=== PATIENT | male | born 1965 | race African-American/Black ===

== ENCOUNTER 2017-08-19 15:10 | Inpatient (IN) ==
[2017-08-19] MEDS ORDERED: ONDANSETRON 4 MG/2 ML VIAL IV PRN ×2 (15:32→18:36)
[2017-08-19 16:06] LABS: Basophils % 0.4 % (0.0-0.8); Eosinophils # 0.5 10*3/uL (0.0-0.87); Eosinophils % 5.5 % (0.00-10.9); Hematocrit 40.1 VOL% (42.0-52.0); Hemoglobin 13.1 GM/DL (14.0-18.0); Immature Granulocytes % 0.7 %; Immature Granulocytes Absolute 0.06 #; Lymphocytes # 3.3 10*3/uL (1.4-4.0); Lymphocytes % 36.2 % (21.2-54.2); Mean Corpuscular HGB Conc 32.7 GM/DL (32-36); Mean Corpuscular Hemoglobin 31 PG (27-34); Mean Corpuscular Volume 95.9 FL (87-102); Mean Platelet Volume 10.3 FL (9.6-12.0); Monocytes # 1.1 10*3/uL (0.11-0.8); Monocytes % 11.9 % (1.7-12.7); Neutrophils # 4.2 10*3/uL (1.4-7.4); Neutrophils % 45.3 % (38.7-73.9); Platelet Count 332 T/CUMM (130-400); Red Blood Count 4.18 MC/CUMM (3.8-5.5); Red Cell Distribution Width 12.2 % (9.3-17.3); White Blood Count 9.2 T/CUMM (4-12)
[2017-08-19 16:13] LABS: INR 0.9; PT Patient Result 9.8 SECS; Partial Thromboplastin Time 27.1 SECS (0-40)
[2017-08-19 16:21] LABS: Alanine Aminotransferase 31 U/L (16-61); Albumin 3.1 G/DL (3.4-5.0); Alkaline Phosphatase 77 U/L (45-117); Aspartate Amino Transferase 31 U/L (0-37); Bilirubin,Total < 0.39 MG/DL (0.2-1.0); Blood Urea Nitrogen 11 MG/DL (7-18); Calcium 8.8 MG/DL (8.5-10.1); Glucose 117 MG/DL (74-106); Osmolality,Calculated 280.3 MOS/KG (273-304); Potassium 3.5 MMOL/L (3.5-5.1); Sodium 141 MMOL/L (136-145); Total Protein 8.1 G/DL (6.4-8.3); Troponin I Only < 0.015 NG/ML (0.00-0.045)
[2017-08-19 17:09] LABS: Apearance,Urine CLEAR (Clear); Bilirubin,Urine Negative (Negative); Blood, Urine Negative (Negative); Glucose,Urine (UA) Negative (Negative); Ketones,Urine Negative (Negative); Mucus,Urine Moderate /LPF (Occasional); Nitrite,Urine Negative (Negative); Protein,Urine Negative; RBC,Urine 7 /HPF (0-4); Urine Color Yellow (Yellow); Urine Specific Gravity 1.027 (1.001-1.035); Urine Urobilinogen < 2.0 EU/DL (0.2-1.0); WBC,Urine 2 /HPF (0-6)
[2017-08-19 17:21] LABS: Barbiturates Screen,Urine Negative (Negative); Benzodiazepines Screen,Urine Negative (Negative); Cannabinoid Screen,Urine Negative (Negative); Opiate Screen,Urine Negative (Negative); Phencyclidine Screen,Urine Negative (Negative)
[2017-08-19] MEDS ORDERED: LABETALOL 20 MG/4 ML SYRINGE IV PRN (18:58)
[2017-08-19 20:20] LABS: Cholesterol 136 MG/DL (50-200); HDL Cholesterol 57 MG/DL (40-60); Risk Ratio 2.39; Triglycerides 61 MG/DL (2-150); Troponin I Only < 0.015 NG/ML (0.00-0.045); VLDL CHOLESTEROL 12.2 MG/DL
[2017-08-19] MEDS ORDERED: ENOXAPARIN 40 MG/0.4 ML SYRINGE ONE (21:48)
[2017-08-19] MEDS: SODIUM CHLORIDE 0.9% 1,000 ML IV SCH (21:59)
[2017-08-19] MEDS: ENOXAPARIN 40 MG/0.4 ML SYRINGE SUBCUT SCH (21:59)
[2017-08-19] MEDS ORDERED: INFLUENZA VIRUS VACCINE 0.5 ML SYRINGE IM ONE (23:26)
[2017-08-20] MEDS: ASPIRIN CHEW 81 MG TABLET PO SCH (08:39)
[2017-08-20] MEDS: PANTOPRAZOLE 40 MG TABLET PO SCH (08:39)
[2017-08-20] MEDS: amLODIPine 5 MG TABLET PO SCH (09:19)
[2017-08-20] MEDS: ALBUTEROL/IPRATROPIUM 3 ML NEB RESP TX SCH ×3 (13:39→19:30)
[2017-08-20] MEDS ORDERED: NICOTINE 7 MG/24 HR PATCH TRANSDERM PRN (16:45)
[2017-08-20] MEDS ORDERED: LISINOPRIL 5 MG TABLET PO SCH (21:00)
[2017-08-20] MEDS: ATORVASTATIN 10 MG TABLET PO SCH (21:35)
[2017-08-20] MEDS: ENOXAPARIN 40 MG/0.4 ML SYRINGE SUBCUT SCH (21:36)
[2017-08-20] MEDS: SODIUM CHLORIDE 0.9% 1,000 ML IV SCH (22:08)
[2017-08-21] MEDS: ALBUTEROL/IPRATROPIUM 3 ML NEB RESP TX SCH ×7 (01:29→23:00)
[2017-08-21 03:12] LABS: Basophils % 0.4 % (0.0-0.8); Eosinophils # 0.2 10*3/uL (0.0-0.87); Eosinophils % 3.3 % (0.00-10.9); Hematocrit 34.5 VOL% (42.0-52.0); Hemoglobin 11.7 GM/DL (14.0-18.0); Immature Granulocytes % 0.4 %; Immature Granulocytes Absolute 0.03 #; Lymphocytes # 2.2 10*3/uL (1.4-4.0); Lymphocytes % 30.3 % (21.2-54.2); Mean Corpuscular HGB Conc 33.9 GM/DL (32-36); Mean Corpuscular Hemoglobin 32 PG (27-34); Mean Corpuscular Volume 92.7 FL (87-102); Mean Platelet Volume 10.3 FL (9.6-12.0); Monocytes % 13.8 % (1.7-12.7); Neutrophils # 3.7 10*3/uL (1.4-7.4); Neutrophils % 51.8 % (38.7-73.9); Platelet Count 345 T/CUMM (130-400); Red Blood Count 3.72 MC/CUMM (3.8-5.5); White Blood Count 7.2 T/CUMM (4-12)
[2017-08-21 03:42] LABS: Albumin 2.6 G/DL (3.4-5.0); Bilirubin,Total 0.5 MG/DL (0.2-1.0); Calcium 8.3 MG/DL (8.5-10.1); Magnesium 2.3 MG/DL (1.8-2.4); Osmolality,Calculated 278.3 MOS/KG (273-304); Potassium 3.5 MMOL/L (3.5-5.1); Total Protein 6.3 G/DL (6.4-8.3)
[2017-08-21] MEDS: amLODIPine 5 MG TABLET PO SCH (09:14)
[2017-08-21] MEDS: MULTIVITAMIN (OCUVITE) TABLET PO SCH (09:14)
[2017-08-21] MEDS: ASPIRIN CHEW 81 MG TABLET PO SCH (09:15)
[2017-08-21] MEDS: PANTOPRAZOLE 40 MG TABLET PO SCH (09:15)
[2017-08-21] MEDS: THIAMINE 100 MG TABLET PO SCH (09:17)
[2017-08-21] MEDS: FOLIC ACID 1 MG TABLET PO SCH (09:17)
[2017-08-21] MEDS: LISINOPRIL 10 MG TABLET PO SCH ×2 (09:17→21:42)
[2017-08-21] MEDS: SODIUM CHLORIDE 0.9% 1,000 ML IV SCH ×2 (11:46→21:43)
[2017-08-21 16:05] LABS: Apearance,Urine CLOUDY (Clear); Bilirubin,Urine Negative (Negative); Blood, Urine Large mg/dL (Negative); Glucose,Urine (UA) Negative (Negative); Ketones,Urine Negative (Negative); Mucus,Urine Moderate /LPF (Occasional); Nitrite,Urine Negative (Negative); Protein,Urine 30 MG/DL; RBC,Urine 692 /HPF (0-4); Urine Color Yellow (Yellow); Urine Specific Gravity 1.016 (1.001-1.035); WBC,Urine 3 /HPF (0-6)
[2017-08-21] MEDS ORDERED: POLYVINYL ALCOHOL 1.4% OPH SOLN 15 ML BOTTLE BOTH EYES PRN (20:35)
[2017-08-21] MEDS: ENOXAPARIN 40 MG/0.4 ML SYRINGE SUBCUT SCH (21:42)
[2017-08-21] MEDS: ATORVASTATIN 10 MG TABLET PO SCH (21:43)
[2017-08-22] MEDS: ALBUTEROL/IPRATROPIUM 3 ML NEB RESP TX SCH ×4 (03:00→20:37)
[2017-08-22] MEDS: SODIUM CHLORIDE 0.9% 1,000 ML IV SCH ×2 (06:52→13:02)
[2017-08-22] MEDS: ASPIRIN CHEW 81 MG TABLET PO SCH (08:57)
[2017-08-22] MEDS: MULTIVITAMIN (OCUVITE) TABLET PO SCH (08:58)
[2017-08-22] MEDS: LISINOPRIL 10 MG TABLET PO SCH (08:58)
[2017-08-22] MEDS: amLODIPine 5 MG TABLET PO SCH (08:59)
[2017-08-22] MEDS: THIAMINE 100 MG TABLET PO SCH (08:59)
[2017-08-22] MEDS: PANTOPRAZOLE 40 MG TABLET PO SCH (08:59)
[2017-08-22] MEDS: FOLIC ACID 1 MG TABLET PO SCH (09:00)
[2017-08-22] MEDS ORDERED: MAGNESIUM HYDROXIDE SUSP 30 ML UDCUP PO ONE (10:39)
[2017-08-22] MEDS ORDERED: amLODIPine 5 MG TABLET PO ONE (10:42)
[2017-08-22] MEDS ORDERED: amLODIPine 10 MG TABLET PO SCH (10:43)
[2017-08-22] MEDS: methylPREDNISolone SOD SUC 125 MG/2 ML VIAL IV SCH (13:04)
[2017-08-22] MEDS: guaiFENesin/DM ER 600-30 MG TABLET PO SCH ×2 (13:08→20:36)
[2017-08-22] MEDS: LEVOFLOXACIN INJ 750 MG in PREMIX 1 EACH IV SCH (13:16)
[2017-08-22] MEDS ORDERED: DOCUSATE SODIUM 100 MG CAPSULE PO PRN (14:11)
[2017-08-22] MEDS ORDERED: LACTULOSE 20 GM/30 ML UDCUP PO PRN (14:11)
[2017-08-22] MEDS: LISINOPRIL 20 MG TABLET PO SCH (20:36)
[2017-08-22] MEDS: ENOXAPARIN 40 MG/0.4 ML SYRINGE SUBCUT SCH (20:36)
[2017-08-22] MEDS: ATORVASTATIN 10 MG TABLET PO SCH (20:36)
[2017-08-23] MEDS: SODIUM CHLORIDE 0.9% 1,000 ML IV SCH ×2 (00:09→10:44)
[2017-08-23] MEDS: methylPREDNISolone SOD SUC 125 MG/2 ML VIAL IV SCH ×2 (00:20→11:12)
[2017-08-23] MEDS: ALBUTEROL/IPRATROPIUM 3 ML NEB RESP TX SCH ×3 (00:28→13:45)
[2017-08-23 06:12] LABS: Basophils % 0.1 % (0.0-0.8); Hematocrit 34.7 VOL% (42.0-52.0); Hemoglobin 12.1 GM/DL (14.0-18.0); Immature Granulocytes % 0.8 %; Immature Granulocytes Absolute 0.06 #; Lymphocytes # 0.9 10*3/uL (1.4-4.0); Mean Corpuscular HGB Conc 34.9 GM/DL (32-36); Mean Corpuscular Hemoglobin 32 PG (27-34); Mean Corpuscular Volume 91.3 FL (87-102); Monocytes # 0.1 10*3/uL (0.11-0.8); Monocytes % 1.5 % (1.7-12.7); Neutrophils # 6.1 10*3/uL (1.4-7.4); Neutrophils % 85.6 % (38.7-73.9); Platelet Count 422 T/CUMM (130-400); Red Cell Distribution Width 11.9 % (9.3-17.3); White Blood Count 7.2 T/CUMM (4-12)
[2017-08-23 06:38] LABS: Albumin 2.7 G/DL (3.4-5.0); Bilirubin,Total 0.5 MG/DL (0.2-1.0); Calcium 8.6 MG/DL (8.5-10.1); Osmolality,Calculated 276.5 MOS/KG (273-304); Potassium 4.1 MMOL/L (3.5-5.1); Total Protein 6.9 G/DL (6.4-8.3)
[2017-08-23] MEDS: ASPIRIN CHEW 81 MG TABLET PO SCH (09:14)
[2017-08-23] MEDS: THIAMINE 100 MG TABLET PO SCH (09:15)
[2017-08-23] MEDS: ACETAMINOPHEN 325 MG TABLET PO PRN ×2 (09:15→14:18)
[2017-08-23] MEDS: MULTIVITAMIN (OCUVITE) TABLET PO SCH (09:15)
[2017-08-23] MEDS: FOLIC ACID 1 MG TABLET PO SCH (09:15)
[2017-08-23] MEDS: LISINOPRIL 20 MG TABLET PO SCH (09:16)
[2017-08-23] MEDS: guaiFENesin/DM ER 600-30 MG TABLET PO SCH (09:16)
[2017-08-23] MEDS: PANTOPRAZOLE 40 MG TABLET PO SCH (09:17)
[2017-08-23] MEDS: LEVOFLOXACIN INJ 750 MG in PREMIX 1 EACH IV SCH (11:12)
[2017-08-23 16:12] VITALS: BP 128/71
== END 2017-08-23 16:55 | disposition home health service (06) | DRG 65 ==
LOC: EDUNIT# → N.ED 15:10 → N.EDINP 18:41 → N.4E 22:30
PROVIDERS: ADMIT Internal Medicine; ATTEND Internal Medicine

== ENCOUNTER 2018-12-09 08:42 | Observation (INO) ==
[2018-12-09] MEDS ORDERED: IPRATROPIUM 500 MCG/2.5 ML NEB RESP TX ONE (11:54)
[2018-12-09] MEDS ORDERED: IPRATROPIUM 500 MCG/2.5 ML NEB RESP TX STA (11:54)
[2018-12-09] MEDS ORDERED: ALBUTEROL 2.5 MG/3 ML NEB RESP TX STA (11:54)
[2018-12-09] MEDS ORDERED: methylPREDNISolone SOD SUC 125 MG/2 ML VIAL IV STA (11:56)
[2018-12-09 12:54] LABS: Basophils # 0.1 10*3/uL (0.0-0.2); Basophils % 0.7 % (0.0-0.8); Eosinophils # 1.1 10*3/uL (0.0-0.87); Eosinophils % 11.9 % (0.00-10.9); Hematocrit 43.3 VOL% (42.0-52.0); Hemoglobin 13.9 GM/DL (14.0-18.0); Immature Granulocytes % 0.3 %; Immature Granulocytes Absolute 0.03 #; Lymphocytes # 3.1 10*3/uL (1.4-4.0); Lymphocytes % 35.5 % (21.2-54.2); Mean Corpuscular HGB Conc 32.1 GM/DL (32-36); Mean Corpuscular Volume 88.7 FL (87-102); Mean Platelet Volume 10.7 FL (9.6-12.0); Monocytes % 8.3 % (1.7-12.7); Neutrophils % 43.3 % (38.7-73.9); Platelet Count 233 T/CUMM (130-400); Red Blood Count 4.88 MC/CUMM (3.8-5.5); Red Cell Distribution Width 13.4 % (9.3-17.3); White Blood Count 8.8 T/CUMM (4-12)
[2018-12-09] MEDS ORDERED: ALBUTEROL 2.5 MG/3 ML NEB RESP TX ONE (13:07)
[2018-12-09 13:30] LABS: Eosinophils 7 % (0-10); Lymphocytes 35 % (20-55); Segmented Neutrophils 43 % (50-85); Total Cells Counted 100
[2018-12-09 13:31] LABS: Platelet Estimate Normal
[2018-12-09 13:56] LABS: Albumin 4.1 G/DL (3.4-5.0); Bilirubin,Total 0.7 MG/DL (0.2-1.0); Calcium 9.1 MG/DL (8.5-10.1); Osmolality,Calculated 281.1 MOS/KG (273-304)
[2018-12-09] MEDS ORDERED: ONDANSETRON 4 MG/2 ML VIAL IV PRN (15:35)
[2018-12-09] MEDS ORDERED: DOCUSATE SODIUM 100 MG CAPSULE PO PRN (15:35)
[2018-12-09] MEDS ORDERED: ACETAMINOPHEN 325 MG TABLET PO PRN (15:35)
[2018-12-09 16:05] LABS: Risk Ratio 2.59; Thyroid Stimulating Hormone 0.998 uIU/ml (0.358-3.74); VLDL CHOLESTEROL 23.6 MG/DL
[2018-12-09] MEDS: AZITHROMYCIN INJ 500 MG in SODIUM CHLORIDE 0.9% 250 ML IV SCH (18:20)
[2018-12-09] MEDS: ENOXAPARIN 40 MG/0.4 ML SYRINGE SUBCUT SCH (18:22)
[2018-12-09] MEDS: ALBUTEROL/IPRATROPIUM 3 ML NEB RESP TX SCH (19:12)
[2018-12-09] MEDS: LISINOPRIL 20 MG TABLET PO SCH (20:47)
[2018-12-09] MEDS: methylPREDNISolone SOD SUC 40 MG/1 ML VIAL IV SCH (20:48)
[2018-12-09] MEDS: BUDESONIDE/FORMOTEROL 80-4.5 INHALER 6.9 GM INH SCH (20:56)
[2018-12-09] MEDS ORDERED: ATORVASTATIN 10 MG TABLET PO SCH (21:00)
[2018-12-09 21:36] LABS: Barbiturates Screen,Urine Negative (Negative); Benzodiazepines Screen,Urine Negative (Negative); Cannabinoid Screen,Urine Negative (Negative); Opiate Screen,Urine Negative (Negative); Phencyclidine Screen,Urine Negative (Negative)
[2018-12-10] MEDS: ALBUTEROL/IPRATROPIUM 3 ML NEB RESP TX SCH ×4 (00:04→11:14)
[2018-12-10] MEDS: methylPREDNISolone SOD SUC 40 MG/1 ML VIAL IV SCH ×2 (03:47→12:45)
[2018-12-10 05:01] LABS: Basophils % 0.1 % (0.0-0.8); Hematocrit 38.8 VOL% (42.0-52.0); Hemoglobin 12.8 GM/DL (14.0-18.0); Immature Granulocytes % 0.5 %; Immature Granulocytes Absolute 0.05 #; Lymphocytes # 1.7 10*3/uL (1.4-4.0); Lymphocytes % 17.9 % (21.2-54.2); Mean Platelet Volume 10.5 FL (9.6-12.0); Monocytes % 1.9 % (1.7-12.7); Neutrophils % 79.6 % (38.7-73.9); Platelet Count 225 T/CUMM (130-400); Red Blood Count 4.46 MC/CUMM (3.8-5.5); Red Cell Distribution Width 13.2 % (9.3-17.3); White Blood Count 9.6 T/CUMM (4-12)
[2018-12-10 05:38] LABS: Albumin 3.5 G/DL (3.4-5.0); Bilirubin,Total 0.6 MG/DL (0.2-1.0); Calcium 9.3 MG/DL (8.5-10.1); Osmolality,Calculated 288.8 MOS/KG (273-304); Total Protein 7.2 G/DL (6.4-8.3)
[2018-12-10] MEDS ORDERED: amLODIPine 10 MG TABLET PO SCH (09:00)
[2018-12-10] MEDS ORDERED: PANTOPRAZOLE 40 MG TABLET PO SCH (09:00)
[2018-12-10] MEDS ORDERED: ASPIRIN EC 325 MG TABLET PO SCH (09:00)
[2018-12-10] MEDS: LISINOPRIL 20 MG TABLET PO SCH (09:44)
[2018-12-10] MEDS: BUDESONIDE/FORMOTEROL 80-4.5 INHALER 6.9 GM INH SCH (10:06)
[2018-12-10] MEDS: AZITHROMYCIN INJ 500 MG in SODIUM CHLORIDE 0.9% 250 ML IV SCH (16:00)
[2018-12-10 16:20] VITALS: BP 142/87
[2018-12-10] MEDS: ENOXAPARIN 40 MG/0.4 ML SYRINGE SUBCUT SCH (16:38)
== END 2018-12-10 17:00 | disposition home or self-care (01) ==
LOC: N.ED 08:42 → SUATTDRO 15:35 → INTOOBSV 15:35 → N.EDINP 15:35 → N.3E 18:25
PROVIDERS: ADMIT Emergency Medicine; ATTEND Internal Medicine

== ENCOUNTER 2021-04-20 18:47 | Observation (INO) ==
[2021-04-20] MEDS ORDERED: methylPREDNISolone SOD SUC 125 MG/2 ML VIAL IV STA (18:56)
[2021-04-20] MEDS ORDERED: ASPIRIN 325 MG TABLET PO STA (18:56)
[2021-04-20] MEDS ORDERED: NITROGLYCERIN 2% OINT 1 INCH/GM PACK TOP STA (18:57)
[2021-04-20 19:18] LABS: Basophils % 0.6 % (0.0-0.8); Eosinophils # 0.3 10*3/uL (0.0-0.87); Eosinophils % 3.8 % (0.00-10.9); Hemoglobin 13.4 GM/DL (14.0-18.0); Immature Granulocytes % 0.3 %; Immature Granulocytes Absolute 0.02 #; Lymphocytes # 2.2 10*3/uL (1.4-4.0); Lymphocytes % 31.8 % (21.2-54.2); Mean Corpuscular HGB Conc 34.4 GM/DL (32-36); Mean Corpuscular Volume 92.9 FL (87-102); Mean Platelet Volume 10.2 FL (9.6-12.0); Monocytes % 10.1 % (1.7-12.7); Neutrophils % 53.4 % (38.7-73.9); Platelet Count 201 T/CUMM (130-400); Red Cell Distribution Width 13.2 % (9.3-17.3); White Blood Count 6.9 T/CUMM (4-12)
[2021-04-20 19:42] LABS: Albumin 3.4 G/DL (3.4-5.0); Bilirubin,Total 0.4 MG/DL (0.20-1.00); Calcium 8.6 MG/DL (8.5-10.1); Total Protein 7.5 G/DL (6.4-8.2)
[2021-04-20 19:48] LABS: ABG Base Excess 7.1 MMOL/L (-2.5-2.5); ABG HCO3 30.9 MMOL/L (20-26); ABG Oxygen Saturation 96.1 % (95-100); ABG PCO2 48.8 MM HG (35-48); ABG PH 7.435 (7.35-7.45); ABG PO2 83.2 MM HG (80-95); ABG TCO2 28.4 MMOL/L (23-27)
[2021-04-20] MEDS ORDERED: ALBUTEROL/IPRATROPIUM 3 ML NEB RESP TX STA (20:05)
[2021-04-20] MEDS ORDERED: ALBUTEROL 2.5 MG/3 ML NEB RESP TX STA (20:05)
[2021-04-20] MEDS ORDERED: AZITHROMYCIN INJ 500 MG in SODIUM CHLORIDE 0.9% 250 ML IV STA (20:12)
[2021-04-20] MEDS ORDERED: cefTRIAXone 1,000 MG in SODIUM CHLORIDE 0.9% 100 ML IV STA (20:12)
[2021-04-20] MEDS ORDERED: GLUCAGON 1 MG VIAL IM PRN (21:50)
[2021-04-20] MEDS ORDERED: DEXTROSE 50% 25 GM/50 ML VIAL IV PRN (21:50)
[2021-04-20] MEDS ORDERED: guaiFENesin/DM ER 600-30 MG TABLET PO PRN (21:54)
[2021-04-20] MEDS ORDERED: POTASSIUM CHLORIDE RIDER 10 MEQ/100 ML PREMIX IV PRN (21:54)
[2021-04-20] MEDS ORDERED: SIMETHICONE CHEW 125 MG TABLET PO PRN (21:54)
[2021-04-20] MEDS ORDERED: MAGNESIUM SULF RIDER 2 GM/50 ML PREMIX IV PRN (21:54)
[2021-04-20] MEDS ORDERED: MAGNESIUM SULF RIDER 4 GM/100 ML PREMIX IV PRN (21:54)
[2021-04-20] MEDS ORDERED: ONDANSETRON 4 MG/2 ML VIAL IV PRN (21:54)
[2021-04-20] MEDS: methylPREDNISolone SOD SUC 125 MG/2 ML VIAL IV SCH (23:39)
[2021-04-21] MEDS ORDERED: INFLUENZA VIRUS VACCINE 0.5 ML SYRINGE IM ONE (00:27)
[2021-04-21] MEDS: ENOXAPARIN 40 MG/0.4 ML SYRINGE SUBCUT SCH ×3 (00:31→21:18)
[2021-04-21] MEDS: lisinopriL 20 MG TABLET PO SCH ×3 (00:31→21:17)
[2021-04-21] MEDS: ALBUTEROL/IPRATROPIUM 3 ML NEB RESP TX SCH ×4 (02:52→20:12)
[2021-04-21] MEDS: BUDESONIDE/FORMOTEROL 80-4.5 INHALER 6.9 GM INH SCH ×3 (04:40→21:18)
[2021-04-21 04:54] LABS: Basophils % 0.3 % (0.0-0.8); Hemoglobin 12.8 GM/DL (14.0-18.0); Immature Granulocytes % 0.5 %; Immature Granulocytes Absolute 0.03 #; Lymphocytes # 0.5 10*3/uL (1.4-4.0); Lymphocytes % 8.4 % (21.2-54.2); Mean Corpuscular HGB Conc 34.6 GM/DL (32-36); Mean Platelet Volume 10.5 FL (9.6-12.0); Monocytes % 1.2 % (1.7-12.7); Neutrophils % 89.6 % (38.7-73.9); Platelet Count 220 T/CUMM (130-400); Red Blood Count 3.98 MC/CUMM (3.8-5.5); Red Cell Distribution Width 13.1 % (9.3-17.3); White Blood Count 6.1 T/CUMM (4-12)
[2021-04-21] MEDS: methylPREDNISolone SOD SUC 125 MG/2 ML VIAL IV SCH ×4 (05:18→22:52)
[2021-04-21 06:03] LABS: Calcium 8.1 MG/DL (8.5-10.1); Osmolality,Calculated 282.3 MOS/KG (273-304); Risk Ratio 2.45; Thyroid Stimulating Hormone 0.293 uIU/ml (0.358-3.74)
[2021-04-21 06:09] LABS: Potassium 2.5 MMOL/L (3.5-5.1)
[2021-04-21] MEDS: POTASSIUM CHLORIDE 20 MEQ TABLET PO PRN ×2 (06:34→09:44)
[2021-04-21] MEDS: amLODIPine 10 MG TABLET PO SCH (09:44)
[2021-04-21] MEDS: PANTOPRAZOLE 40 MG TABLET PO SCH (09:44)
[2021-04-21] MEDS: ASPIRIN EC 325 MG TABLET PO SCH (09:44)
[2021-04-21] MEDS: DOCUSATE SODIUM 100 MG CAPSULE PO SCH ×2 (09:44→21:18)
[2021-04-21] MEDS ORDERED: POTASSIUM CHLORIDE 20 MEQ TABLET PO ONE (11:23)
[2021-04-21] MEDS ORDERED: hydrALAZINE 20 MG/1 ML VIAL IV PRN (11:32)
[2021-04-21] MEDS: ACETAMINOPHEN 325 MG TABLET PO PRN ×2 (12:28→21:17)
[2021-04-21] MEDS: ATORVASTATIN 10 MG TABLET PO SCH (21:17)
[2021-04-21] MEDS: cefTRIAXone 1,000 MG in SODIUM CHLORIDE 0.9% 100 ML IV SCH (21:18)
[2021-04-21] MEDS: AZITHROMYCIN INJ 500 MG in SODIUM CHLORIDE 0.9% 250 ML IV SCH (22:51)
[2021-04-22] MEDS: ALBUTEROL/IPRATROPIUM 3 ML NEB RESP TX SCH ×4 (00:20→19:49)
[2021-04-22] MEDS: methylPREDNISolone SOD SUC 125 MG/2 ML VIAL IV SCH (04:42)
[2021-04-22 05:38] LABS: Basophils % 0.1 % (0.0-0.8); Hematocrit 37.9 VOL% (42.0-52.0); Hemoglobin 13.1 GM/DL (14.0-18.0); Immature Granulocytes % 0.8 %; Lymphocytes # 0.9 10*3/uL (1.4-4.0); Mean Corpuscular HGB Conc 34.6 GM/DL (32-36); Mean Corpuscular Volume 92.9 FL (87-102); Mean Platelet Volume 10.8 FL (9.6-12.0); Monocytes % 5.4 % (1.7-12.7); Neutrophils % 86.7 % (38.7-73.9); Platelet Count 216 T/CUMM (130-400); Red Blood Count 4.08 MC/CUMM (3.8-5.5); Red Cell Distribution Width 13.4 % (9.3-17.3); White Blood Count 13.1 T/CUMM (4-12)
[2021-04-22 06:00] LABS: Calcium 8.3 MG/DL (8.5-10.1); Osmolality,Calculated 289.7 MOS/KG (273-304); Potassium 2.6 MMOL/L (3.5-5.1)
[2021-04-22] MEDS: POTASSIUM CHLORIDE 20 MEQ TABLET PO PRN ×2 (06:38→20:56)
[2021-04-22] MEDS ORDERED: POTASSIUM CHLORIDE 20 MEQ TABLET PO ONE (07:40)
[2021-04-22] MEDS ORDERED: MAGNESIUM OXIDE 400 MG TABLET PO ONE (07:41)
[2021-04-22] MEDS: ASPIRIN EC 325 MG TABLET PO SCH (10:12)
[2021-04-22] MEDS: methylPREDNISolone SOD SUC 40 MG/1 ML VIAL IV SCH ×3 (10:13→20:56)
[2021-04-22] MEDS: amLODIPine 10 MG TABLET PO SCH (10:13)
[2021-04-22] MEDS: PANTOPRAZOLE 40 MG TABLET PO SCH (10:13)
[2021-04-22] MEDS: DOCUSATE SODIUM 100 MG CAPSULE PO SCH ×2 (10:13→20:56)
[2021-04-22] MEDS: lisinopriL 20 MG TABLET PO SCH ×2 (10:13→20:56)
[2021-04-22] MEDS: BUDESONIDE/FORMOTEROL 80-4.5 INHALER 6.9 GM INH SCH ×2 (10:13→21:00)
[2021-04-22] MEDS: POTASSIUM CHLORIDE 20 MEQ TABLET PO SCH (10:55)
[2021-04-22] MEDS: ACETAMINOPHEN 325 MG TABLET PO PRN (16:23)
[2021-04-22] MEDS: ENOXAPARIN 40 MG/0.4 ML SYRINGE SUBCUT SCH (20:55)
[2021-04-22] MEDS: ATORVASTATIN 10 MG TABLET PO SCH (20:56)
[2021-04-22] MEDS: cefTRIAXone 1,000 MG in SODIUM CHLORIDE 0.9% 100 ML IV SCH (20:57)
[2021-04-22] MEDS: AZITHROMYCIN INJ 500 MG in SODIUM CHLORIDE 0.9% 250 ML IV SCH (20:57)
[2021-04-23] MEDS: methylPREDNISolone SOD SUC 40 MG/1 ML VIAL IV SCH ×3 (01:01→14:24)
[2021-04-23] MEDS: ALBUTEROL/IPRATROPIUM 3 ML NEB RESP TX SCH ×3 (01:02→13:15)
[2021-04-23] MEDS: ACETAMINOPHEN 325 MG TABLET PO PRN (05:00)
[2021-04-23 06:34] LABS: Basophils % 0.1 % (0.0-0.8); Eosinophils % 0.1 % (0.00-10.9); Hematocrit 36.9 VOL% (42.0-52.0); Hemoglobin 12.4 GM/DL (14.0-18.0); Immature Granulocytes % 1.5 %; Immature Granulocytes Absolute 0.21 #; Lymphocytes # 0.6 10*3/uL (1.4-4.0); Lymphocytes % 4.2 % (21.2-54.2); Mean Corpuscular HGB Conc 33.6 GM/DL (32-36); Mean Corpuscular Volume 94.9 FL (87-102); Mean Platelet Volume 10.8 FL (9.6-12.0); Monocytes % 3.5 % (1.7-12.7); Neutrophils % 90.6 % (38.7-73.9); Platelet Count 214 T/CUMM (130-400); Red Blood Count 3.89 MC/CUMM (3.8-5.5); White Blood Count 13.9 T/CUMM (4-12)
[2021-04-23 07:09] LABS: Anisocytosis 1+; Band Neutrophils 2 % (0-10); Lymphocytes 3 % (20-55); Macrocytosis 1+; Platelet Estimate Normal; Segmented Neutrophils 88 % (50-85); Total Cells Counted 100
[2021-04-23 07:30] LABS: Potassium 2.9 MMOL/L (3.5-5.1)
[2021-04-23] MEDS: ASPIRIN EC 325 MG TABLET PO SCH (08:37)
[2021-04-23] MEDS: amLODIPine 10 MG TABLET PO SCH (08:37)
[2021-04-23] MEDS: PANTOPRAZOLE 40 MG TABLET PO SCH (08:37)
[2021-04-23] MEDS: lisinopriL 20 MG TABLET PO SCH (08:37)
[2021-04-23] MEDS: POTASSIUM CHLORIDE 20 MEQ TABLET PO SCH (08:38)
[2021-04-23] MEDS: DOCUSATE SODIUM 100 MG CAPSULE PO SCH (08:38)
[2021-04-23] MEDS: BUDESONIDE/FORMOTEROL 80-4.5 INHALER 6.9 GM INH SCH (08:39)
[2021-04-23] MEDS: POTASSIUM CHLORIDE RIDER 10 MEQ/100 ML PREMIX IV SCH ×2 (10:33→13:56)
[2021-04-23 15:05] VITALS: BP 159/96
== END 2021-04-23 15:15 | disposition home or self-care (01) ==
LOC: N.EDINP 18:47 → N.ED 18:47 → N.4E 04-21 00:05
PROVIDERS: ADMIT Internal Medicine; ATTEND Internal Medicine